=== PATIENT | male | born 1940 | race Caucasian/White ===

== ENCOUNTER 2017-01-01 23:51 | Inpatient (IN) | payer OTHER ==
[~2017-01-01] VITALS: Ht 177.8 cm; Wt 110.2 kg
[2017-01-02] VITALS (7 sets, daily range): BP systolic 125–131; BP diastolic 60–72
[2017-01-02 00:33] LABS: HEMATOCRIT 33.4 % (38.0-50.0); MCH 25.5 PG (29.0-34.0); MCHC 30.5 G/DL (30.0-36.0); MCV 83.5 FL (86-99); MEAN PLAT.VOLUME 8.7 uM^3 (9.0-12.4); PLATELET COUNT 202 K/uL (156-360); RBC DIS.WIDTH-CV 15.9 % (11.8-14.6); WHITE BLOOD COUNT 6.3 K/uL (4.1-10.2)
[2017-01-02 00:45] LABS: CHLORIDE 106 mEq/L (99-109); POTASSIUM 4.1 mEq/L (3.7-5.4); SODIUM 140 mEq/L (136-147)
[2017-01-02 00:47] LABS: GLUCOSE 203 mg/dL (70-99)
[2017-01-02 00:48] LABS: ANION GAP 10 MEQ/L (2-14)
[2017-01-02 00:49] LABS: TOTAL BILIRUBIN 1.4 mg/dL (0.0-1.0)
[2017-01-02 00:50] LABS: ALKALINE PHOSPHATASE 177 IU/L (3-129)
[2017-01-02 00:51] LABS: GFR ESTIMATE (CALCULATED) > 59 mL/min/
[2017-01-02 00:52] LABS: UREA NITROGEN (BUN) 24 mg/dL (9-23)
[2017-01-02 00:54] LABS: CREATINE KINASE 89 IU/L (1-294); TOTAL CK 89 IU/L (1-294)
[2017-01-02 00:56] LABS: TROP-I INTERPRETATION NEGATIVE; TROPONIN-I < 0.01 ng/mL (0.0-0.30)
[2017-01-02 01:00] LABS: CK-MB 1.4 ng/mL (0.0-4.9)
[2017-01-02 01:21] LABS: LIPASE 1065 U/L (1.0-51.0)
[2017-01-02 01:47] LABS: BILIRUBIN NEGATIVE; BLOOD NEGATIVE; COLOR YELLOW ((YELLOW)); GLUCOSE (STRIP) NEGATIVE; KETONES NEGATIVE; LEUKOCYTES NEGATIVE; NITRITE NEGATIVE; PROTEIN (STRIP) NEGATIVE; SPECIFIC GRAVITY 1.032 (1.000-1.030)
[2017-01-02 01:50] LABS: ADD MIUA? NO; UCUL ADDED? NO
[2017-01-02 06:47] LABS: EOSINOPHIL (%) 0.2 % (0-5); HEMATOCRIT 30.7 % (38.0-50.0); IMMATURE GRANULOCYTE (%) 0.6 % (0.0-0.7); IMMATURE GRANULOCYTE COUNT 0.1 K/uL; INSTRUMENT ABS NEUTROPHIL CT 9.2 K/uL; LYMPHOCYTE COUNT 0.7 K/uL (1.0-2.8); MCH 25.1 PG (29.0-34.0); MCV 83.9 FL (86-99); MEAN PLAT.VOLUME 8.8 uM^3 (9.0-12.4); MONOCYTE (%) 4.4 % (3-12); MONOCYTE COUNT 0.5 K/uL (0-0.8); NEUTROPHIL (%) 87.7 % (45-76); NEUTROPHIL COUNT 9.2 K/uL (1.8-6.4); PLATELET COUNT 192 K/uL (156-360); RBC DIS.WIDTH-CV 15.9 % (11.8-14.6); RBC DIS.WIDTH-SD 49.2 % (39-53); RED BLOOD COUNT 3.66 M/uL (4.00-5.50); WHITE BLOOD COUNT 10.5 K/uL (4.1-10.2)
[2017-01-02 07:23] LABS: ALKALINE PHOSPHATASE 147 IU/L (3-129); ANION GAP 7 MEQ/L (2-14); CHLORIDE 107 MEQ/L (99-109); GFR ESTIMATE (CALCULATED) > 59 mL/min/; GLUCOSE 141 mg/dL (70-99); LIPASE 435 U/L (1.0-51.0); SAMPLE HEMOLYSIS CHECK 0; SAMPLE ICTERIC CHECK 0; SAMPLE LIPEMIA CHECK 0; SODIUM 138 MEQ/L (136-147); TOTAL BILIRUBIN 1.8 MG/DL (0.0-1.0); UREA NITROGEN (BUN) 22 mg/dL (9-23)
[2017-01-02 07:25] LABS: C-REACTIVE PROTEIN 73.3 MG/L (0-10); TRIGLYCERIDES 48 MG/DL (Normal: <150)
[2017-01-02 11:28] LABS: DIRECT BILIRUBIN 1.2 mg/dL (0.0-0.3)
[2017-01-02] MEDS ORDERED: PERCOCET 10/1 TABLET PO (12:04)
[2017-01-02] MEDS ORDERED: HYDROCODON-ACE1 EA12 PO (12:05)
[2017-01-02] MEDS ORDERED: CYCLOBENZAPRINE10 MG PO (12:06)
[2017-01-02] MEDS ORDERED: VITAMIN D-32000 UNI2 PO (12:06)
[2017-01-02] MEDS ORDERED: OMEPRAZOLE20 M2 PO (12:07)
[2017-01-02] MEDS ORDERED: OMEGA-3 FISH1200 MG PO (12:07)
[2017-01-02] MEDS ORDERED: OYSTERCAL-D 501 EACH PO (12:08)
[2017-01-02] MEDS ORDERED: CELECOXIB200 MG PO (12:08)
[2017-01-02] MEDS ORDERED: ASPIR 8181 M1 PO (12:09)
[2017-01-02] MEDS ORDERED: TRIAMTERENE/HC1 EACH PO (12:09)
[2017-01-02] MEDS ORDERED: COLACE100 MG PO (12:10)
[2017-01-02] MEDS ORDERED: KLOR-CON SPRIN10 MEQ PO (12:10)
[2017-01-02] MEDS ORDERED: HYDRALAZINE HCL25 MG PO (12:11)
[2017-01-02] MEDS ORDERED: TAMSULOSIN HCL0.4 MG PO (12:12)
[2017-01-02] MEDS ORDERED: TIZANIDINE HCL4 M1 PO (12:12)
[2017-01-02] MEDS ORDERED: GABAPENTIN600 MG PO (12:13)
[2017-01-02] MEDS ORDERED: METFORMIN HCL500 M4 PO (12:13)
[2017-01-02] MEDS ORDERED: MAGNESIUM GLUCONATE PO (12:15)
[2017-01-02] MEDS ORDERED: BIOTENE MOISTUR45 ML PO (12:16)
[2017-01-02] MEDS ORDERED: BYSTOLIC5 MG PO (12:16)
[2017-01-02] MEDS ORDERED: TRAMADOL HCL50 MG PO (12:17)
[2017-01-02] MEDS ORDERED: GAVISCON ES CH1 EACH PO (12:17)
[2017-01-02] MEDS ORDERED: LASIX40 MG PO (12:18)
[2017-01-02] MEDS ORDERED: OXAYDO5 MG PO (12:18)
[2017-01-02] MEDS ORDERED: VIAGRA100 MG PO (12:18)
[2017-01-02] MEDS ORDERED: QUININE SULFAT324 MG PO (12:19)
[2017-01-02] MEDS ORDERED: LOPERAMIDE2 M1 PO (12:19)
[2017-01-02] MEDS ORDERED: GLUCOSAMINE1000 MG PO (12:20)
[2017-01-02] MEDS ORDERED: TYLENOL W/COD1 COMB1 PO (12:21)
[2017-01-02] MEDS ORDERED: PERCOCET 5/31 TABLET PO (12:21)
[2017-01-02] MEDS ORDERED: ALTAMIST60 ML BOTH NARES (12:22)
[2017-01-02] MEDS ORDERED: NASACORT10.8 ML BOTH NARES (12:23)
[2017-01-02] MEDS ORDERED: BELSOMRA20 MG PO (12:24)
[2017-01-02 21:12] LABS: EOSINOPHIL (%) 1.6 % (0-5); EOSINOPHIL COUNT 0.1 K/uL (0-0.3); HEMATOCRIT 30.3 % (38.0-50.0); IMMATURE GRANULOCYTE (%) 0.3 % (0.0-0.7); INSTRUMENT ABS NEUTROPHIL CT 5.3 K/uL; LYMPHOCYTE COUNT 0.7 K/uL (1.0-2.8); MCHC 30.7 G/DL (30.0-36.0); MCV 84.6 FL (86-99); MEAN PLAT.VOLUME 8.9 uM^3 (9.0-12.4); MONOCYTE (%) 7.5 % (3-12); MONOCYTE COUNT 0.5 K/uL (0-0.8); NEUTROPHIL (%) 79.9 % (45-76); NEUTROPHIL COUNT 5.3 K/uL (1.8-6.4); PLATELET COUNT 177 K/uL (156-360); RBC DIS.WIDTH-CV 15.9 % (11.8-14.6); RBC DIS.WIDTH-SD 48.6 % (39-53); RED BLOOD COUNT 3.58 M/uL (4.00-5.50); WHITE BLOOD COUNT 6.7 K/uL (4.1-10.2)
[2017-01-02 21:38] LABS: ANION GAP 7 MEQ/L (2-14); CHLORIDE 106 MEQ/L (99-109); POTASSIUM 3.6 MEQ/L (3.7-5.4); SAMPLE HEMOLYSIS CHECK 0; SAMPLE ICTERIC CHECK 0; SAMPLE LIPEMIA CHECK 0; SODIUM 138 MEQ/L (136-147)
[2017-01-02 21:40] LABS: TOTAL BILIRUBIN 3.2 MG/DL (0.0-1.0)
[2017-01-02 21:44] LABS: ALKALINE PHOSPHATASE 137 IU/L (3-129); GFR ESTIMATE (CALCULATED) > 59 mL/min/; GLUCOSE 116 mg/dL (70-99); UREA NITROGEN (BUN) 16 mg/dL (9-23)
[2017-01-02 22:17] LABS: POINT-OF-CARE METER ID UU14117124
[2017-01-03 06:47] LABS: HEMATOCRIT 29.6 % (38.0-50.0); MCH 24.9 PG (29.0-34.0); MCHC 29.4 G/DL (30.0-36.0); MCV 84.8 FL (86-99); PLATELET COUNT 186 K/uL (156-360); RBC DIS.WIDTH-SD 49.2 % (39-53); RED BLOOD COUNT 3.49 M/uL (4.00-5.50)
[2017-01-03 07:14] LABS: ALKALINE PHOSPHATASE 134 IU/L (3-129); ANION GAP 10 MEQ/L (2-14); CHLORIDE 107 MEQ/L (99-109); DIRECT BILIRUBIN 1.6 mg/dL (0.0-0.3); GFR ESTIMATE (CALCULATED) > 59 mL/min/; GLUCOSE 99 mg/dL (70-99); POTASSIUM 3.6 MEQ/L (3.7-5.4); SAMPLE HEMOLYSIS CHECK 0; SAMPLE ICTERIC CHECK 0; SAMPLE LIPEMIA CHECK 0; SODIUM 142 MEQ/L (136-147); TOTAL BILIRUBIN 2.5 MG/DL (0.0-1.0); UREA NITROGEN (BUN) 15 mg/dL (9-23)
[2017-01-03 09:17] VITALS: BP 154/70
[2017-01-03 11:43] LABS: FERRITIN 44 NG/ML (22-322); IRON 24 MCG/DL (35-150)
[2017-01-03 11:49] LABS: POINT-OF-CARE METER ID UU14188577
[2017-01-03 12:35] VITALS: BP 155/73
[2017-01-03 16:56] LABS: POINT-OF-CARE METER ID UU14188577
[2017-01-03 17:23] VITALS: BP 133/65
[2017-01-03 20:59] VITALS: BP 136/69
[2017-01-03 21:25] LABS: POINT-OF-CARE METER ID UU14208753
[2017-01-04 00:07] VITALS: BP 144/70
[2017-01-04 00:21] LABS: POINT-OF-CARE METER ID UU14208753
[2017-01-04 06:25] LABS: POINT-OF-CARE METER ID UU14117124
[2017-01-04 06:49] LABS: HEMATOCRIT 28.9 % (38.0-50.0); MCH 24.8 PG (29.0-34.0); MCHC 29.8 G/DL (30.0-36.0); MCV 83.3 FL (86-99); MEAN PLAT.VOLUME 8.6 uM^3 (9.0-12.4); PLATELET COUNT 167 K/uL (156-360); RBC DIS.WIDTH-CV 15.9 % (11.8-14.6); RBC DIS.WIDTH-SD 48.3 % (39-53); RED BLOOD COUNT 3.47 M/uL (4.00-5.50); WHITE BLOOD COUNT 4.3 K/uL (4.1-10.2)
[2017-01-04 07:11] LABS: GFR ESTIMATE (CALCULATED) > 59 mL/min/; UREA NITROGEN (BUN) 14 mg/dL (9-23)
[2017-01-04 07:15] LABS: ALKALINE PHOSPHATASE 126 IU/L (3-129); ANION GAP 7 MEQ/L (2-14); CHLORIDE 108 MEQ/L (99-109); DIRECT BILIRUBIN 0.7 mg/dL (0.0-0.3); GFR ESTIMATE (CALCULATED) > 59 mL/min/; GLUCOSE 124 mg/dL (70-99); POTASSIUM 3.6 MEQ/L (3.7-5.4); SAMPLE HEMOLYSIS CHECK 0; SAMPLE ICTERIC CHECK 0; SAMPLE LIPEMIA CHECK 0; SODIUM 139 MEQ/L (136-147); TOTAL BILIRUBIN 1.3 MG/DL (0.0-1.0); UREA NITROGEN (BUN) 14 mg/dL (9-23)
[2017-01-04 07:31] VITALS: BP 152/76
[2017-01-04 10:03] LABS: INTERNAL CONTROL VALID? YES
[2017-01-04 11:41] LABS: POINT-OF-CARE METER ID UU14117124
[2017-01-04 11:42] VITALS: BP 149/73
[2017-01-04 15:37] VITALS: BP 143/67
[2017-01-04 17:13] LABS: POINT-OF-CARE METER ID UU14117124
[2017-01-04 21:43] VITALS: BP 137/72
[2017-01-04 23:35] VITALS: BP 132/68
[2017-01-04 23:49] LABS: POINT-OF-CARE METER ID UU14117124
[2017-01-05 04:56] VITALS: BP 163/94
[2017-01-05 06:27] LABS: POINT-OF-CARE METER ID UU14188577
[2017-01-05 06:47] LABS: HEMATOCRIT 31.7 % (38.0-50.0); MCH 25.9 PG (29.0-34.0); MCHC 30.9 G/DL (30.0-36.0); MCV 83.9 FL (86-99); MEAN PLAT.VOLUME 9.2 uM^3 (9.0-12.4); PLATELET COUNT 189 K/uL (156-360); RBC DIS.WIDTH-CV 16.1 % (11.8-14.6); RBC DIS.WIDTH-SD 49.8 % (39-53); RED BLOOD COUNT 3.78 M/uL (4.00-5.50); WHITE BLOOD COUNT 4.9 K/uL (4.1-10.2)
[2017-01-05 08:28] VITALS: BP 160/74
[2017-01-05 09:01] LABS: ALKALINE PHOSPHATASE 157 IU/L (3-129); ANION GAP 9 MEQ/L (2-14); CHLORIDE 109 MEQ/L (99-109); DIRECT BILIRUBIN 0.6 mg/dL (0.0-0.3); GFR ESTIMATE (CALCULATED) > 59 mL/min/; GLUCOSE 107 mg/dL (70-99); POTASSIUM 4.2 MEQ/L (3.7-5.4); SAMPLE HEMOLYSIS CHECK 0; SAMPLE ICTERIC CHECK 0; SAMPLE LIPEMIA CHECK 0; SODIUM 142 MEQ/L (136-147); TOTAL BILIRUBIN 1.2 MG/DL (0.0-1.0); UREA NITROGEN (BUN) 14 mg/dL (9-23)
[2017-01-05] MEDS ORDERED: AMOXICILLIN500 MG PO (11:09)
[2017-01-05] MEDS ORDERED: CIPRO500 MG PO (11:09)
[2017-01-05 11:42] VITALS: BP 166/79
== END 2017-01-05 14:00 | disposition home or self-care (01) | DRG 438 ==
LOC: EDBD 23:51 → EME 23:51 → 3EAST 01-02 04:01 → EDOF 01-02 04:01 → ENRESERV 01-02 04:02 → 3EAST 01-02 05:55
PROVIDERS: Emergency Medicine; Hospitalist; Internal Medicine
PROC: 5A09357 Assistance with Respiratory Ventilation, Less than 24 Consecutive Hours, Continuous Positive Airway Pressure (ICD-10-PCS; principal; 2017-01-02)
DX: K85.10 Biliary acute pancreatitis without necrosis or infection (principal); A41.51 Sepsis due to Escherichia coli [E. coli]; A41.81 Sepsis due to Enterococcus; R65.20 Severe sepsis without septic shock; K83.0 Cholangitis; N17.9 Acute kidney failure, unspecified; I13.0 Hypertensive heart and chronic kidney disease with heart failure and stage 1 through stage 4 chronic kidney disease, or unspecified chronic kidney disease; E87.2 Acidosis; I42.9 Cardiomyopathy, unspecified; K76.0 Fatty (change of) liver, not elsewhere classified; K57.90 Diverticulosis of intestine, part unspecified, without perforation or abscess without bleeding; K21.9 Gastro-esophageal reflux disease without esophagitis; K44.9 Diaphragmatic hernia without obstruction or gangrene; N18.3 Chronic kidney disease, stage 3 (moderate); N40.0 Benign prostatic hyperplasia without lower urinary tract symptoms; B95.2 Enterococcus as the cause of diseases classified elsewhere; B96.20 Unspecified Escherichia coli [E. coli] as the cause of diseases classified elsewhere; E11.22 Type 2 diabetes mellitus with diabetic chronic kidney disease; E66.01 Morbid (severe) obesity due to excess calories; I50.9 Heart failure, unspecified; G47.33 Obstructive sleep apnea (adult) (pediatric); E86.0 Dehydration; G40.909 Epilepsy, unspecified, not intractable, without status epilepticus; E78.00 Pure hypercholesterolemia, unspecified; D63.1 Anemia in chronic kidney disease; Z96.659 Presence of unspecified artificial knee joint; Z96.649 Presence of unspecified artificial hip joint; E80.4 Gilbert syndrome; G62.9 Polyneuropathy, unspecified; R16.0 Hepatomegaly, not elsewhere classified; R19.5 Other fecal abnormalities; K80.20 Calculus of gallbladder without cholecystitis without obstruction; Z68.34 Body mass index [BMI] 34.0-34.9, adult; Z90.49 Acquired absence of other specified parts of digestive tract; Z79.4 Long term (current) use of insulin; Z85.828 Personal history of other malignant neoplasm of skin; Z95.0 Presence of cardiac pacemaker; Z79.84 Long term (current) use of oral hypoglycemic drugs
CPT/HCPCS: 71010; 72170; 73030; 74177; 76705; 80048; 80053; 80076; 81003; 82248; 82272; 82550; 82553; 82565; 82607; 82728; 82746; 82787 90; 82948; 83540; 83605; 83690; 84466; 84478; 84484; 84520; 85025; 85025 91; 85027; 86140; 87040; 87077; 87186; 87801; 93005; 94660; 94799; 99281; 99285; C9113; J0692; J1644; J1815; J2270; J2405; J2543; J3370; J7030; J7050